=== PATIENT | female | born 1990 | race Caucasian/White ===

== ENCOUNTER → 2019-12-02 13:18 | Outpatient (CLI) | payer OTHER, SELFPAY ==
--- NOTE | 2019-12-02 | DI.CT.S_ITS ---
PROCEDURE: CT ABDOMEN W CON INDICATIONS: Left upper quadrant pain x 3 weeks TECHNIQUE: After the administration of oral and intravenous contrast, 5 mm thick sections acquired from the diaphragms to the iliac crests. 5 mm thick coronal and sagittal reformats were acquired. For radiation dose reduction, the following was used: automated exposure control, adjustment of mA and/or kV according to patient size. COMPARISON: None. FINDINGS: Image quality: Excellent. Lung bases: Lung bases are clear. Heart size is normal. Solid organs: Liver is normal in size and enhancement. Gallbladder is contracted. Biliary system is non dilated. Pancreas enhances normally. Spleen is normal in size and enhancement. No adrenal nodules. Kidneys are normal in size, without hydronephrosis. Peritoneum and bowel: Stomach is mildly distended. There is a small hiatal hernia. Contrast enhanced bowel loops appear normal in caliber. There is a moderate amount stool in colon. No free fluid or air. Nodes and vessels: No retroperitoneal or mesenteric adenopathy by size criteria. Aorta and inferior vena cava are normal in size. Bones: No suspicious bony lesions. No vertebral body compression fractures. Miscellaneous: Small fat-containing umbilical hernia is noted. IMPRESSION: 1. Mild gastric distention and a small hiatal hernia. 2. Moderate amount of stool in colon. Dictated by: Breanna Nettles M.D. on 12/02/2019 at 15:51 Approved by: Breanna Nettles M.D. on 12/02/2019 at 15:55
== END ==
PROVIDERS: PCP Family Medicine; Visit Provider Family Medicine
DX: R10.12 Left upper quadrant pain (principal); K44.9 Diaphragmatic hernia without obstruction or gangrene; K42.9 Umbilical hernia without obstruction or gangrene
CPT/HCPCS: 74160; Q9967

== ENCOUNTER → 2020-01-11 08:53 | Outpatient (CLI) | payer OTHER, SELFPAY | PROVIDERS: PCP Family Medicine; Referring Provider Family Medicine; Visit Provider Family Medicine | DX: K29.00 Acute gastritis without bleeding (principal); R10.12 Left upper quadrant pain; K21.9 Gastro-esophageal reflux disease without esophagitis | CPT/HCPCS: 86677 ==

== ENCOUNTER 2020-10-26 00:44 | Emergency (ER) | payer OTHER, SELFPAY ==
[2020-10-26 00:54] VITALS: BP 151/77; PULSE 99; RESP 16; TEMP 36.7; O2SAT 100; BMI 33.9
--- NOTE | 2020-10-26 02:09 | ED_ITS ---
HPI - Abdominal Pain General Chief Complaint: Abdominal Pain Stated Complaint: Serious ovary pain x1 day Time Seen by Provider: 10/26/20 01:43 Source: patient Mode of arrival: Ambulatory History of Present Illness HPI narrative: Patient brought here by . Complains 1 day of sudden onset left pelvic pain. Nonradiating. No vaginal discharge or complaints. No urinary complaints. No flank pain. No nausea or vomiting or fever. No prior history of ovarian cyst. Denies . Denies any history of kidney stones. complaint: abdominal pain Related Data Allergies Allergy/AdvReac Type Severity Reaction Status Date / Time No Known Drug Allergies Allergy Verified 10/26/20 00:57 Review of Systems Review of Systems Narrative: GENERAL: Denies chills, fatigue, malaise, fever, sweats. HEENT: Denies sinus pain, ear pain, sore throat, difficulty swallowing RESPIRATORY: Denies dyspnea, cough CARDIOVASCULAR: Denies chest pain, palpitations, edema, GASTROINTESTINAL: Denies nausea, vomiting, complains of abdominal pain, denies diarrhea, constipation, melena. : Denies dysuria, frequency, hematuria MUSCULOSKELETAL: denies muscle or bony pain SKIN: Denies rash, skin lesions NEUROLOGIC: Denies weakness, headache, numbness, change in speech, confusion PSYCHIATRIC: No SI or HI or hallucinations ROS Unobtainable: All systems reviewed & are unremarkable except as noted in HPI and below Patient History Social History Smoking Status: Never smoker Smoking Status: Never smoker Substance Use Type: does not use Exam Narrative Exam Narrative: GENERAL: patient appears stated age. Well-nourished, well- developed patient, in no distress, not toxic not dyspneic HEAD: Normocephalic. EYES: Pupils equal round and reactive. No scleral icterus. No injection no discharge ENT: Mucous membranes moist. No drooling no tongue elevation no trismus no malocclusion NECK: Trachea midline. Non tender CARDIOVASCULAR: Regular rate and rhythm without murmurs, gallops, or rubs. RESPIRATORY: Clear to auscultation. Breath sounds equal bilaterally. No wheezes, rales, or rhonchi. GASTROINTESTINAL: Abdomen soft, mild left pelvic tenderness no peritoneal signs. Bowel sounds present, nondistended. 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 Normal external exam. No vaginal discharge or bleeding or blood or blood clots. No lesions. No CMT. Mild left adnexal tenderness. EXTREMITIES: No gross deformities. BACK: Nontender without deformity or crepitance. No flank tenderness. NEURO: AOx4. SKIN: Warm and dry PSYCH: Not anxious, is cooperative Initial Vital Signs Initial Vital Signs: Vital Signs Temperature 98.0 F 10/26/20 00:54 Pulse Rate 99 H 10/26/20 00:54 Respiratory Rate 16 10/26/20 00:54 Blood Pressure 151/77 H 10/26/20 00:54 Pulse Oximetry 100 10/26/20 00:54 Course Course Course Narrative: No new complaints during course of stay Orders Ordered: ED Orders 10/26/20 02:20 Complete Blood Count AUTO DIFF Stat Comprehensive Metabolic Panel Stat 10/26/20 02:39 US pelvic limited Stat 10/26/20 04:54 Wet Prep Tric BV Jenna Stat 10/26/20 05:02 Chlamydia Gonorrhea PCR -URINE Stat Discontinued Medications Ketorolac Tromethamine (Ketorolac 60 Mg/2 Ml Vial) 30 mg IV NOW ONE Stop: 10/26/20 02:43 Last Admin: 10/26/20 02:50 Dose: 30 mg Documented by: JOSH Reevaluation(s) Reevaluation #1: Patient states pain improved with Toradol. Review results with patient. Patient does have a family doctor to follow up with. Can get referral to OBGYN as well. Not toxic at discharge. Time: 04:49 Vital Signs Vital signs: Vital Signs - 8 hr 10/26/20 00:54 10/26/20 04:36 Temperature 98.0 F Pulse Rate 99 H 71 Respiratory Rate 16 Blood Pressure 151/77 H 131/62 Pulse Oximetry 100 98 MDM - Abdominal Pain Differential Diagnosis Differential diagnosis: Likely abdominal pain and other (Cervicitis/vaginitis/ovarian torsion/ovarian cyst/ovarian abscess) Lab Data Attestation: I reviewed the patient's lab results. Result diagrams: 10/26/20 02:20 10/26/20 02:20 Labs: Lab Results 10/26/20 10/26/20 Range/Units 02:20 02:20 WBC 8.2 (4.5-11.0) X10^3/uL RBC 4.42 (4.0-5.2) X10^6/uL Hgb 10.9 L (12.0-16.0) g/dL Hct 33.8 L (36-46) % MCV 76.4 L (80-100) fL MCH 24.6 L (26-34) PG MCHC 32.2 (30-36) % RDW 16.6 H (11.6-14.8) % Plt Count 313 (150-400) X10^3/uL Neut % (Auto) 50.9 (50-75) % Lymph % (Auto) 36.7 (25-40) % [place] % (Auto) 9.7 (3-14) % Eos % (Auto) 2.1 (2-4) % Baso % (Auto) 0.6 (0-2) % Neut # (Auto) 4200 (7013-5025) /uL Lymph # (Auto) 3000 (8800-4698) /uL [place] # (Auto) 800 (0-900) /uL Eos # (Auto) 200 (0-450) /uL Baso # (Auto) 0 (0-100) /uL Sodium 138 (137-145) mmol/L Potassium 3.7 (3.4-5.1) mmol/L Chloride 108 H (98-107) mmol/L Carbon Dioxide 27 (22-32) mmol/L BUN 7 (7-17) mg/dL Creatinine 0.68 (0.52-1.04) mg/dL Estimated GFR > 60.0 (>60) mL/min BUN/Creatinine Ratio 10.3 (6-22) Glucose 92 (70-100) mg/dL Calcium 8.8 (8.4-10.2) mg/dL Total Bilirubin 0.4 (0.2-1.3) mg/dL AST 22 (14-36) IU/L ALT 15 (<35) IU/L Alkaline Phosphatase 61 (38-126) U/L Total Protein 7.4 (6.3-8.2) g/dL Albumin 4.3 (3.5-5.0) g/dL Globulin 3.1 (1.7-4.1) g/dL Albumin/Globulin Ratio 1.4 (1.0-2.8) Point of care testing: Point of Care Testing Test Results Negative Urine Dip Bedside Urine Glucose Negative Bedside Urine Bilirubin - Negative Bedside Urine Ketone - Negative Urine Specific [place] 1.020 Bedside Urine Occult Blood - Negative Bedside Urine pH 6 Bedside Urine Protein - Negative Bedside Urine Urobilinogen - Negative Bedside Urine Nitrite - Negative Bedside Urine Leukocytes - Negative Esterase Imaging Data US - abdomen: Radiologist's Impression: Results faxed. Impression uterine fibroid. Blood flow to both ovaries without evidence of torsion. Multiple follicles. MDM Narrative Medical decision making narrative: Appropriate for discharge home. Pain is controlled. Patient does have follow-up. Not toxic. Patient desires discharge home Discharge Plan Departure Patient Disposition: Home Clinical Impression: Pelvic pain Fibroid, uterine Qualifiers: Uterine leiomyoma location: unspecified location Qualified Code(s): D25.9 - Leiomyoma of uterus, unspecified Instructions: DI for Uterine Fibroids, DI for Pelvic Pain Activity Restrictions/Additional Instructions: Return if worse for any questions or concerns. See family doctor in a week for recheck. May need a referral to OBGYN for evaluation of uterine fibroid. May continue home ibuprofen for pain. Referrals: Jose Angel Monae MD [Primary Care Provider] -
[2020-10-26 02:34] LABS: Add Manual Diff / Slide Review NO; Basophils Absolute Auto 0 /uL (0-100); Basophils Percent Auto 0.6 % (0-2); Eosinophils Absolute Auto 200 /uL (0-450); Eosinophils Percent Auto 2.1 % (2-4); Hematocrit 33.8 % (36-46); Hemoglobin 10.9 g/dL (12.0-16.0); Lymphocytes Absolute Auto 3000 /uL (1100-4500); Lymphocytes Percent Auto 36.7 % (25-40); Mean Corpuscular HGB Conc 32.2 % (30-36); Mean Corpuscular Hemoglobin 24.6 PG (26-34); Mean Corpuscular Volume 76.4 fL (80-100); Monocytes Absolute Auto 800 /uL (0-900); Monocytes Percent Auto 9.7 % (3-14); Neutrophils Absolute Auto 4200 /uL (1500-7000); Neutrophils Percent Auto 50.9 % (50-75); Platelet Count 313 X10^3/uL (150-400); Red Blood Cell Count 4.42 X10^6/uL (4.0-5.2); Red Cell Distribution Width 16.6 % (11.6-14.8); White Blood Cell Count 8.2 X10^3/uL (4.5-11.0)
--- NOTE | 2020-10-26 02:39 | DI.US.S_ITS ---
PROCEDURE: US PELVIC LIMITED INDICATIONS: r/o torsion TECHNIQUE: Real-time transabdominal scanning was performed of the pelvic organs, with image documentation. COMPARISON: None. FINDINGS: Uterus: Uterus is normal in size at 7.8 x 4.2 x 5.6 cm. Endometrium measures 5.2 mm in combined thickness. There is a 3.6 x 3.1 x 2.7 cm intramural fibroid in the left anterior uterine wall. Ovaries: Right ovary measures 3.6 x 1.7 x 2.8 cm. Left ovary measures 3.1 x 2.0 x 2.1 cm. There is a dominant follicle in the right ovary measuring 1.8 cm. Other: No pathologic free pelvic fluid. Limited scanning through the kidneys shows no hydronephrosis. On Doppler ultrasound, there is positive vascularity to both ovaries. IMPRESSION: 1. No evidence for ovarian torsion. There is a dominant follicle in the right ovary. 2. Myomatous uterus with a uterine fibroid. 3. No pathological free-fluid. No significant discrepancy with the assembler 1st shift radiology preliminary report. Dictated by: Breanna Nettles M.D. on 10/26/2020 at 8:18 Approved by: Breanna Nettles M.D. on 10/26/2020 at 8:22
[2020-10-26 02:40] LABS: Alanine Aminotransferase 15 IU/L (<35); Albumin 4.3 g/dL (3.5-5.0); Albumin Globulin Ratio 1.4 (1.0-2.8); Alkaline Phosphatase 61 U/L (38-126); Aspartate Aminotransferase 22 IU/L (14-36); BUN Creatinine Ratio 10.3 (6-22); Bilirubin Total 0.4 mg/dL (0.2-1.3); Blood Urea Nitrogen 7 mg/dL (7-17); Calcium 8.8 mg/dL (8.4-10.2); Carbon Dioxide 27 mmol/L (22-32); Chloride 108 mmol/L (98-107); Estimated Glomerular Filt Rate > 60.0 mL/min (>60); Globulin 3.1 g/dL (1.7-4.1); Glucose 92 mg/dL (70-100); HEMOLYSIS < 15 (0-50); Potassium 3.7 mmol/L (3.4-5.1); Sodium 138 mmol/L (137-145); Total Protein 7.4 g/dL (6.3-8.2)
[2020-10-26] MEDS: KETOROLAC 60 MG/2 ML VIAL 30 MG IV (02:50)
[2020-10-26 04:36] VITALS: BP 131/62; PULSE 71; O2SAT 98
[2020-10-26 06:36] LABS: Urine N gonorrhoeae NOT DETECTED
[2020-10-26 06:43] LABS: Urine Chlamydia NOT DETECTED
== END 2020-10-26 05:35 | disposition home or self-care (01) ==
PROVIDERS: Emergency Provider Emergency Medicine; PCP Family Medicine
DX: R10.2 Pelvic and perineal pain (principal); D25.9 Leiomyoma of uterus, unspecified
CPT/HCPCS: 36415; 76830; 76857; 80053; 81003; 81025; 85025; 87210; 87491; 87591; 96374; 99283; 99284; J1885